=== PATIENT | female | born 1985 | race Caucasian/White ===

== ENCOUNTER → 2016-04-29 | Outpatient (CLI) | payer OTHER ==
--- NOTE | 2016-04-29 15:51 | US ---
April 29, [address] Diaz, Thank you for requesting consultation and a ultrasound to evaluate anatomy for your patient, Mrs. Becerra. As you know, Yani is a 30 year old G 1 P 0 with a rutledge rito ing 20 w 0 d; CHEPE of 09/16/16 by LMP and 12 week ultrasound. She had reassuring NIPT. ULTRASOUND Number of fetuses: 1 Placental location: Posterior; no evidence of previa Placental cord insertion: Intraplacental presentation: Cephalic Cervix: 4.3 cm viewed transabdominally Maximum Vertical Pocket: 5.4 cm The adnexa were evaluated. No pathology was seen. Right ovary is visualized and seen as normal. It measures 2.0 x 1.0 x 1.6 cm. Left ovary is visualized and seen as normal. It measures 2.7 x 1.3 x 2.6 cm. MEASUREMENTS: Biparietal diameter: 48 mm 20 weeks, 5days Head circumference: 187 mm 21 weeks, 1 days Abdominal circumference: 151 mm 20 weeks, 3days Femur length: 33 mm 20weeks, 4 days Humerus length: 31 mm 20 weeks, 3days Transcerebellar diameter: 21 mm 20 weeks, 1 days Average ultrasound age: 20 weeks, 5 days Estimated weight: 356 gm weight percentile: 72% ANATOMY Supratentorial brain: Normal including views of the falx, cavum septum pellucidum and choroids Lateral Ventricle: Normal, measuring 5.1 mm Posterior fossa: Normal including the cerebellum and cisterna magna Spine: Normal Nuchal fold: 4.0 mm normal Face: Normal views of the lip and nose area Profile: Normal Palate: Normal appearance of the alveolar ridge Heart: Normal four chamber view and the outflow tracts are seen appropriately oriented and crossing Heart Rate 149 bpm Diaphragm: Normal appearance without overt abnormality detected Stomach: Normal Umbilical cord insertion: Normal Right kidney: Normal Left kidney: Normal Bladder: Normal Number of cord vessels: Three Upper extremities: Normal Lower extremities: Normal Gender: Male IMPRESSION: 1. Intrauterine at 20 w 0d, ultrasound is consistent with her established CHEPE of 09/16/16. 2. Normal anatomical survey. 3. Cervical length is normal at 4.3cm without evidence of insufficiency. RECOMMENDATIONS: I was pleased to review today's ultrasound with your patient and her . I reassured them that the baby is growing appropriately with normal amniotic fluid volume. Our detailed review of the feta l anatomy did not reveal any overt abnormalities. Future ultrasound and consultation is left to your clinical discretion. Thank you for allowing us the opportunity to evaluate your patient. Should you have any further ques tions or concerns please do not hesitate to contact me. No E&M. Mikala Florence MD [facility] Maternal Medicine Diagnosis Department of Obstetrics & Gynecology [facility]
--- NOTE | 2016-04-29 17:22 | US ---
Complete Obstetric Ultrasound History: 30-year-old with estimated gestational age of 20 weeks 0 days and EDC of September 16, 2016. Comparison: OB ultrasound March 04, 2016. Findings: Number: 1 Presentation: Vertex Placental location: Posterior. No previa. Cervix: Closed, measuring 4.3 cm transabdominally Maximum vertical pocket: 5.4 cm The ovaries are normal. Biometry: Biparietal diameter: 48 mm 20 weeks, 5 days Head circumference: 187 mm 21 weeks, 1 days Abdominal circumference: 151 mm 20 weeks, 3 days Femur length: 33 mm 20 weeks, 4 days Humeral length: 31 mm 20 weeks, 3 days Transcerebellar diameter: 21 mm 20 weeks, 1 days Average ultrasound age: 20 weeks, 5 days EDC based on today's average ultrasound age: September 11, 2016 Estimated weight is 356 grams +/- 52 grams. The estimated weight percentile is 72% based on previous dating. ANATOMY SURVEY: Supratentorial brain: Normal Posterior fossa: Normal Spine: Normal Nose and lips: Normal Heart: Four chamber heart with heart rate of 149 . The outflow tracts are normal. Stomach: Normal Umbilical cord insertion: Normal Kidneys: Normal Bladder: Normal Number of cord vessels: Three Upper extremities: Visualized Lower extremities: Visualized Impression: 1. Living single intrauterine with size concordant with dates. 2. Unremarkable anatomy. Please see separate dictation for consultation performed by Mikala Florence MD, the same day.
== END ==
LOC: FIMAGING 14:23
PROVIDERS: ATTEND Obstetrics & Gynecology
DX: Z34.02 Encounter for supervision of normal first pregnancy, second trimester (principal); Z3A.20 20 weeks gestation of pregnancy

== ENCOUNTER 2016-09-14 01:46 | Inpatient (IN) | payer OTHER ==
[2016-09-14] MEDS ORDERED: OXYTOCIN/RINGERS LACTATE 1,000 ML IV PRN (03:14)
[2016-09-14] MEDS ORDERED: LR 500 ML IV PRN (03:14)
[2016-09-14] MEDS ORDERED: LR 1,000 ML IV PRN (03:14)
[2016-09-14] MEDS ORDERED: EPSOM SALT 454 GM TP PRN (03:14)
[2016-09-14] MEDS ORDERED: OLIVE OIL 118 ML BTL MISC PRN (03:14)
[2016-09-14] MEDS ORDERED: TERBUTALINE SULFATE 1 MG/ML VIAL IV PRN (03:14)
[2016-09-14] MEDS ORDERED: OXYTOCIN/RINGERS LACTATE 500 ML IV SCH (03:30)
[2016-09-14 03:31] LABS: % IMMATURE GRANULYOCYTES 0.7 % (0.0-1.1); ABSOLUTE IMMATURE GRANULOCYTES 0.07 10^3/uL (0.00-0.10); ADD DIFF? NO; ADD MORPH? NO; ADD SCAN? NO; ATYPICAL LYMPHOCYTE FLAG 10 (0-99); FRAGMENT RBC FLAG 0 (0-99); HEMOGLOBIN 11.5 g/dL (12.6-16.3); LEFT SHIFT FLG 0 (0-99); LIPEMIA HEMOLYSIS FLAG 90 (0-99); MEAN CELL HEMOGLOBIN 32.4 pg (27.9-34.1); MEAN CELL HEMOGLOBIN CONCENTR. 34.8 g/dL (32.4-36.7); MEAN PLATELET VOLUME 9.7 fL (8.7-11.7); PLATELET CLUMPS FLAG 0 (0-99); PLATELET COUNT 273 10^3/uL (150-400); RED BLOOD CELL COUNT 3.55 10^6/uL (4.18-5.33); RED CELL DISTRIBUTION WIDTH 13.3 % (11.5-15.2)
--- NOTE | 2016-09-14 03:57 | GHP ---
[f rep st] HISTORY AND PHYSICAL DATE OF ADMISSION: 09/14/2016 CHIEF COMPLAINT: Leakage of fluid. HISTORY OF PRESENT ILLNESS: The patient is a 31-year-old, 1, para 0, at 39 weeks 5 days estimated gestational age who woke up around midnight with a large gush of fluid. She continued to have leakage of fluid and called in and was advised to present to Labor and Delivery. At time of arrival to Labor and Delivery she continued to be leaking copious clear fluid, having some intermittent mildly painful contractions. No vaginal bleeding and good movement with reassuring status. Her course has been uncomplicated, apart from mild anemia with a hematocrit of 32, at 28 weeks and she was started on iron. PAST MEDICAL HISTORY: Nonsignificant. PAST SURGICAL HISTORY: Nonsignificant. MEDICATIONS: vitamins. ALLERGIES: Penicillin. FAMILY HISTORY: Noncontributory. SOCIAL HISTORY: to [place]. 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 She does not smoke cigarettes and does not use alcohol or illicit drugs. REVIEW OF SYSTEMS: Negative, except as stated in history of present illness. OBJECTIVE: VITAL SIGNS: Normal with a blood pressure of 128/74, heart rate of 89, respirations of 16, and a temperature of 37.2. GENERAL EXAM: Awake and alert. In no acute distress. RESPIRATIONS: Unlabored. CARDIOVASCULAR: Regular rate and rhythm. ABDOMEN: Gravid, soft, nontender with an EFW of 7.5 pounds. EXTREMITIES: No edema. STERILE VAGINAL EXAM: 2 cm dilated, 50% effaced at -2 station, vertex. heart rate monitoring with a baseline of 130 beats per minute. Moderate variability. Positive accelerations. No decelerations. Tocometer contractions every 4 to 5 minutes. OB LABS: Blood type B positive, antibody screen negative. Hematocrit at new OB 34.8, Pap normal. Immune to varicella and rubella. Nonreactive to RPR, hep B surface antigen and HIV. Negative urine culture. Negative gonorrhea and chlamydia. Hematocrit of 32 at 28 weeks. 1 hour Glucola normal at 107. Group B strep negative on August 20, 2016. Genetic screening is notable for a negative cell free DNA, cystic fibrosis screen, nuchal translucency and anatomy ultrasound and a negative single marker AFP. She is status post flu shot on February 06, 2016 and Tdap on July 01, 2016. ASSESSMENT: The patient is a 31-year-old, G1, P0, at 39 weeks 5 days by last menstrual period and 1st trimester ultrasound who presents with spontaneous rupture of membranes. She is not currently in active labor. She is GBS negative. Her status is reassuring. PLAN: Admit to labor and delivery with routine orders. After discussion, parents would like to wait an additional 2-3 hours to see if the patient goes into labor on her own. Around 6 am, it will have been 6 hours from when the bag of water broke, if she is not in labor, she agrees to augmentation of her labor with Pitocin at that time. Will plan intermittent monitoring until Pitocin is started if it becomes indicated and then we will do continuous monitoring at that time. Otherwise, routine intrapartum care. /[id number]/MODL MTDD
--- NOTE | 2016-09-14 05:59 | OBPROG ---
OBG Progress Note Assessment/Plan: Assessment: G1 at 39w5d, SROM in early labor status reassuring GBS neg Plan: Recommend pitocin augmentation to get contractions closer and stronger together. Alternative is expectant management. She wants to go in tub now and then once out will start pitocin. Epidural when requested. 09/14/16 05:57 Subjective: has been arturo, feeling more painful. She is certain she will want an epidural Objective: 09/14/16 03:20 Patient ABO/Rh B POSITIVE 09/14/16 03:20 Gen: NAD, mildly uncomfortable during contractions - SVE Dilation (cm): 3 Effacement (%): 80 Station: -1 Current Contraction Pattern: Irregular FHR (bpm): 140 FHR Pattern Variability: Moderate FHR Category: 1 Membranes: SROM Amniotic Fluid Color: Clear ICD10 Worksheet Patient Problems: Problems Problem Status Onset Ruptured, membranes, premature Acute - ICD10 Problem Qualifiers (1) Ruptured, membranes, premature Qualifiers: PROM onset of labor timing: onset of labor within 24 hours of rupture PROM gestational age: P
--- NOTE | 2016-09-14 08:04 | OBPROG ---
OBG Progress Note Assessment/Plan: Assessment: G1 at 39w5d, SROM, now in labor status reassuring GBS neg Plan: Expectant management. No indication for AOL at this time epidural at pt's request 09/14/16 05:57 09/14/16 08:03 Subjective: getting a lot more uncomfortable. would like epidural Objective: 09/14/16 03:20 Patient ABO/Rh B POSITIVE 09/14/16 03:20 VS reviewed on hands and knees - SVE Dilation (cm): 5 Effacement (%): 90 Station: -1 Current Contraction Pattern: Regular FHR (bpm): 140 FHR Pattern Variability: Moderate FHR Category: 1 Membranes: SROM Amniotic Fluid Color: Clear ICD10 Worksheet Patient Problems: Problems Problem Status Onset Ruptured, membranes, premature Acute - ICD10 Problem Qualifiers (1) Ruptured, membranes, premature Qualifiers: PROM onset of labor timing: onset of labor within 24 hours of rupture PROM gestational age: P
[2016-09-14] MEDS ORDERED: fentaNYL 2MCG/ML/BUP 0.1% RTU 100 ML BAG EP ONE (08:30)
[2016-09-14] MEDS ORDERED: fentaNYL 100 MCG/2 ML INJ ONE (08:30)
[2016-09-14] MEDS ORDERED: PHENYLEPHRINE HCL 100 MCG/ML SYR ONE (08:32)
[2016-09-14] MEDS ORDERED: NALOXONE HCL 0.4 MG/ML INJ IVP PRN (09:18)
[2016-09-14] MEDS ORDERED: ONDANSETRON 4 MG/2 ML VIAL IVP PRN (09:18)
[2016-09-14] MEDS ORDERED: METOCLOPRAMIDE 10 MG/2 ML VIAL IVP PRN (09:18)
[2016-09-14] MEDS ORDERED: PHENYLEPHRINE HCL 100 MCG/ML SYR IVP PRN (09:18)
[2016-09-14] MEDS ORDERED: LR 500 ML IV SCH (09:30)
[2016-09-14] MEDS ORDERED: fentaNYL 2MCG/ML/BUP 0.1% RTU 100 ML EP SCH (09:30)
[2016-09-14] MEDS ORDERED: TERBUTALINE SULFATE 1 MG/ML VIAL ONE (10:44)
[2016-09-14] MEDS ORDERED: OXYTOCIN 10 UNIT/ML VIAL ONE (10:44)
[2016-09-14] MEDS ORDERED: LIDOCAINE 1% 300 MG/30 ML SDV ONE (10:44)
[2016-09-14] MEDS ORDERED: AMMONIA AROMATIC 1 EACH AMP IH ONE (10:44)
[2016-09-14] MEDS ORDERED: OLIVE OIL 118 ML BTL ONE (10:44)
[2016-09-14] MEDS ORDERED: MISOPROSTOL 200 MCG TAB ONE (10:45)
--- NOTE | 2016-09-14 10:55 | OBPROG ---
OBG Progress Note Assessment/Plan: Assessment: G1 at 39w5d, SROM/labor Ready to push status reassuring Plan: Pushed with patient x 3 contractions, excellent effort with movement of fetus Expect Subjective: feeling pressure Objective: 09/14/16 03:20 Patient ABO/Rh B POSITIVE 09/14/16 03:20 - SVE Dilation (cm): 10 Effacement (%): 100 Station: +1 Current Contraction Pattern: Regular FHR (bpm): 140 FHR Pattern Variability: Moderate FHR Category: 1 Membranes: SROM Amniotic Fluid Color: Clear ICD10 Worksheet Patient Problems: Problems Problem Status Onset Ruptured, membranes, premature Acute - ICD10 Problem Qualifiers (1) Ruptured, membranes, premature Qualifiers: PROM onset of labor timing: onset of labor within 24 hours of rupture PROM gestational age: P
[2016-09-14] MEDS ORDERED: ACETAMINOPHEN 325 MG TAB PO PRN (13:21)
[2016-09-14] MEDS ORDERED: HYDROCORTISONE 0.5% CREAM TP PRN (13:21)
[2016-09-14] MEDS ORDERED: SIMETHICONE 80 MG TAB CHEW PO PRN (13:21)
--- NOTE | 2016-09-14 13:25 | OBPROC ---
- Labor and Delivery Onset of Contractions Date: 09/14/16 Onset of Contractions Time: 00:00 Onset of Contractions Type: Spontaneous Rupture of Membranes Date: 09/14/16 Rupture of Membranes Time: 00:00 Rupture of Membranes Type: Spontaneous Amniotic Fluid Color: Clear Delivery Type: Spontaneous Placenta Delivery Date: 09/14/16 Episiotomy/Laceration: 2nd Degree Repair: 3-0 EBL: 300 Complications: None - Medications Anesthesia: Epidural, Local (Specify) - Helen Info Infant A Delivery Date: 09/14/16 Delivery Time: 12:46 Sex of Infant: Male Score (1 Min): 8 Score (5 Min): 9 (Pt pushed with excellent effort, x 40 min with very tight perineum, she requested episiotomy due to fatigue, 1 cm midline episiotomy performed, baby delivered with next contraction. Baby placed skin to skin, vigorous, delayed cord clamping. There was no extension of episiotomy and the small 2nd degree laceration was repaired in the usual fashion after delivery of placenta. Mom and baby in stable condition.)
[2016-09-14] MEDS: IBUPROFEN 600 MG TAB PO PRN ×2 (14:01→20:19)
[2016-09-14] MEDS: DOCUSATE SODIUM 100 MG CAP PO PRN (20:31)
[2016-09-15] MEDS: IBUPROFEN 600 MG TAB PO PRN ×4 (02:30→22:03)
--- NOTE | 2016-09-15 08:39 | SOAPPROG ---
SOAP Progress Note Assessment/Plan: Assessment: 31 yo s/p , ppd 1, doing well. Plan: 09/15/16 08:38 Rh +, rubella immune. Routine care. Home tomorrow. Subjective: 31 yo s/p , ppd 1, doing well. Objective: Vital Signs Temp Pulse Resp BP Pulse Ox 36.8 C 86 20 106/63 95 09/14/16 20:00 09/14/16 20:00 09/14/16 20:00 09/14/16 20:00 09/14/16 20:00 Laboratory Results 09/14/16 03:20 09/14/16 09/15/16 09/16/16 05:59 05:59 05:59 Output Total 300 Balance -300 Physical Exam - Physical Exam General Appearance: no apparent distress Respiratory: lungs clear Cardiac/Chest: regular rate, rhythm Abdomen: non-tender Skin: warm/dry Extremities: non-tender Neuro/Psych: oriented x 3 ICD10 Worksheet Patient Problems: Problems Problem Status Onset Ruptured, membranes, premature Acute
[2016-09-15] MEDS: DOCUSATE SODIUM 100 MG CAP PO PRN ×2 (08:53→20:24)
[2016-09-16] MEDS: IBUPROFEN 600 MG TAB PO PRN ×2 (04:10→11:08)
[2016-09-16 09:44] VITALS: BP 95/58; PULSE 72; RESP 18; TEMP 98.3; O2SAT 97
--- NOTE | 2016-09-16 10:54 | OBPROG ---
OBG Progress Note Assessment/Plan: Assessment: Pt is a 31 y/o female s/p - doing well, ready for discharge Plan: 1) Discharge home 2) B+/RI 3) RX for motrin given for pain 4) Call for bleeding/pain/fevers 5) F/U in 4 weeks or sooner prn 09/16/16 10:53 Subjective: Pt is feeling well, no complaints. Ambulating, voiding, passing flatus, lochia diminishing, and breast feeding progressing. Objective: 09/14/16 03:20 Patient ABO/Rh B POSITIVE 09/14/16 03:20 Temp Pulse Resp BP Pulse Ox 36.8 C 72 18 95/58 L 97 09/16/16 08:00 09/16/16 08:00 09/16/16 08:00 09/16/16 08:00 09/16/16 08:00 Uterine Position/Fundal Height: Umbilicus -2 Uterine Tone: Firm ICD10 Worksheet Patient Problems: Problems Problem Status Onset Ruptured, membranes, premature Acute
[2016-09-16] MEDS: DOCUSATE SODIUM 100 MG CAP PO PRN (11:08)
== END 2016-09-16 13:00 | disposition home or self-care (01) | DRG 775 ==
LOC: FLD 01:46 → OBSVTOIN 03:14 → FOB 15:54
PROVIDERS: ADMIT Obstetrics & Gynecology; ATTEND Obstetrics & Gynecology
DX: O99.02 Anemia complicating childbirth (principal); Z37.0 Single live birth; Z3A.39 39 weeks gestation of pregnancy; D64.9 Anemia, unspecified; O70.1 Second degree perineal laceration during delivery
CPT/HCPCS: J2370; J2590; J3010; J3105

== ENCOUNTER → 2017-11-13 | Outpatient (CLI) | payer OTHER | LOC: FIMAGING 12:15 | PROVIDERS: ATTEND Obstetrics & Gynecology | DX: Z34.91 Encounter for supervision of normal pregnancy, unspecified, first trimester (principal); Z3A.12 12 weeks gestation of pregnancy ==

== ENCOUNTER → 2018-01-01 | Outpatient (CLI) | payer OTHER | LOC: FIMAGING 12:32 | PROVIDERS: ATTEND Obstetrics & Gynecology | DX: O09.292 Supervision of pregnancy with other poor reproductive or obstetric history, second trimester (principal); Z3A.19 19 weeks gestation of pregnancy ==

== ENCOUNTER → 2018-03-05 | Outpatient (CLI) | payer OTHER | LOC: FIMAGING 11:14 | PROVIDERS: ATTEND Obstetrics & Gynecology | DX: Z34.83 Encounter for supervision of other normal pregnancy, third trimester (principal); Z3A.28 28 weeks gestation of pregnancy ==